=== PATIENT | male | born 1995 | race Caucasian/White ===

== ENCOUNTER 2019-01-28 09:18 | Emergency (ER) | payer BC ==
[2019-01-28] MEDS ORDERED: ONDANSETRON 4 MG (ODT) TAB ONE (10:22)
--- NOTE | 2019-01-28 10:39 | ER ---
Nurse's Notes [facility] Name: Dirk Moreno Age: 23 yrs Sex: Male : 1995 Arrival Date: 01/28/2019 Time: 09:23 Bed 15 Private MD: Diagnosis: Nausea and vomiting;Diarrhea, unspecified Presentation: 01/28 09:32 Presenting complaint: Patient states: Started running fever 99.7 yesterday. Denies rb1 pain. Transition of care: patient was not received from another setting of care. Onset of symptoms was January 27, 2019. Risk Assessment: Do you want to hurt yourself or someone else? Patient reports no desire to harm self or others. Care prior to arrival: None. :32 Method Of Arrival: Ambulatory rb1 :32 Acuity: MACARIO 3 rb1 :32 Initial Sepsis Screen: Does the patient meet any 2 criteria? No. Patient's initial rb1 sepsis screen is negative. Does the patient have a suspected source of infection? No. Patient's initial sepsis screen is negative. Triage Assessment: 09:32 General: Appears in no apparent distress. comfortable, Behavior is calm, cooperative. rb1 General: Reports fever for 1-2 days. Pain: Denies pain. Neuro: Level of Consciousness is awake, alert, obeys commands, Oriented to person, place, time, situation. Cardiovascular: Capillary refill < 3 seconds is brisk in bilateral fingers. Respiratory: Airway is patent Respiratory effort is even, unlabored, Respiratory pattern is regular, symmetrical. GI: Reports diarrhea, nausea, vomiting. : No signs and/or symptoms were reported regarding the genitourinary system. Derm: Skin is pink, warm \T\ dry. Historical: - Allergies: :32 Augmentin; rb1 09:32 Ceclor; rb1 09:32 Iodine; rb1 09:32 SHELLFISH; rb1 - Home Meds: :32 None [Active]; rb1 - PMHx: :32 None; rb1 - PSHx: :32 right thumb; rb1 - Immunization history:: Adult Immunizations up to date. - Social history:: Smoking status: Patient/guardian denies using tobacco. - Ebola Screening: : Patient negative for fever greater than or equal to 101.5 degrees Fahrenheit, and additional compatible Ebola Virus Disease symptoms. Screenin:32 Abuse screen: Denies threats or abuse. Nutritional screening: No deficits noted. rb1 Tuberculosis screening: No symptoms or risk factors identified. Fall Risk None identified. Assessment: 09:32 General: See triage assessment. rb1 10:30 Reassessment: Patient appears in no apparent distress at this time. Patient and/or rb1 family updated on plan of care and expected duration. Pain level reassessed. Patient is alert, oriented x 3, equal unlabored respirations, skin warm/dry/pink. Patient states symptoms have improved. Vital Signs: 09:32 BP 124 / 82; Pulse 105; Resp 17; Temp 99.7(O); Pulse Ox 96% on R/A; Weight 95.25 kg rb1 (R); Height 5 ft. 10 in. (177.80 cm) (R); Pain 0/10; 10:09 BP 118 / 73 Supine; Pulse 99; Resp 18; Pulse Ox 99% on R/A; rb1 10:11 BP 129 / 93 Sitting; Pulse 108; Resp 19; Pulse Ox 98% on R/A; rb1 10:13 BP 127 / 76 Standing; Pulse 103; Resp 19; Pulse Ox 97% on R/A; rb1 10:45 BP 124 / 87; Pulse 107; Resp 17; Temp 99(O); Pulse Ox 97% on R/A; Pain 0/10; rb1 09:32 Body Mass Index 30.13 (95.25 kg, 177.80 cm) rb1 ED Course: 09:23 Patient arrived in ED. ds1 09:31 Brittany Clark, SOFI is Primary Nurse. rb1 09:32 Rick Berger PA is PHCP. cp 09:32 Rick Miguel MD is Attending Physician. cp 09:32 Arm band placed on right wrist. rb1 09:32 Patient has correct armband on for positive identification. Bed in low position. Call rb1 light in reach. Side rails up X 1. Pulse ox on. NIBP on. 09:42 Triage completed. rb1 10:55 No provider procedures requiring assistance completed. Patient did not have IV access rb1 during this emergency room visit. Administered Medications: 10:07 Drug: Zofran 4 mg Route: PO; rb1 10:30 Follow up: Response: No adverse reaction; Nausea is decreased rb1 Outcome: 10:39 Discharge ordered by . cp 10:55 Discharged to home ambulatory. rb1 10:55 Condition: stable 10:55 Discharge instructions given to patient, Instructed on discharge instructions, follow up and referral plans. medication usage, Demonstrated understanding of instructions, follow-up care, medications, Prescriptions given X 1. 10:59 Patient left the ED. hb Signatures: Tosha Bowles ds1 Rick Berger PA PA cp Barber, Rebecca, RN RN rb1 Margarita De Los Santos RN RN hb
--- NOTE | 2019-01-28 10:40 | EDPHYS ---
Physician Documentation [facility] Name: Dirk Moreno Age: 23 yrs Sex: Male : 1995 Arrival Date: 01/28/2019 Time: 09:23 Bed 15 Private MD: ED Physician Rick Miguel HPI: 01/28 09:55 This 23 yrs old Male presents to ER via Ambulatory with complaints of cp Vomiting, Diarrhea, Fever. 09:55 The patient presents to the emergency department with nausea, that is moderate, cp vomiting, that is intermittent, 5 times today, diarrhea, that is continuous. 09:55 Onset: The symptoms/episode began/occurred last night. Possible causes: sick contacts, cp by co-worker(s). Associated signs and symptoms: Pertinent negatives: abdominal pain, constipation, dysuria, GI bleeding. Severity of symptoms: in the emergency department the symptoms are unchanged despite home interventions. Historical: - Allergies: 09:32 Augmentin; rb1 09:32 Ceclor; rb1 09:32 Iodine; rb1 09:32 SHELLFISH; rb1 - Home Meds: 09:32 None [Active]; rb1 - PMHx: 09:32 None; rb1 - PSHx: 09:32 right thumb; rb1 - Immunization history:: Adult Immunizations up to date. - Social history:: Smoking status: Patient/guardian denies using tobacco. - Ebola Screening: : Patient negative for fever greater than or equal to 101.5 degrees Fahrenheit, and additional compatible Ebola Virus Disease symptoms. ROS: 10:00 Constitutional: Negative for body aches, chills, fever, poor PO intake. cp 10:00 Eyes: Negative for injury, pain, redness, and discharge. cp 10:00 ENT: Negative for ear pain, sore throat, difficulty swallowing, difficulty handling secretions. 10:00 Cardiovascular: Negative for chest pain. 10:00 Respiratory: Negative for cough, shortness of breath, wheezing. 10:00 Abdomen/GI: Positive for nausea and vomiting, diarrhea, Negative for abdominal pain, constipation, hematemesis, black/tarry stool, rectal bleeding. 10:00 Back: Negative for radiated pain. 10:00 : Negative for urinary symptoms. 10:00 Skin: Negative for rash. 10:00 Neuro: Negative for dizziness, headache, weakness. 10:00 All other systems are negative. Exam: 10:05 Constitutional: The patient appears in no acute distress, alert, awake, non-toxic, well cp developed, well nourished. 10:05 Head/Face: Normocephalic, atraumatic. cp 10:05 Eyes: Periorbital structures: appear normal, Conjunctiva: normal, no exudate, no injection, Sclera: no appreciated abnormality, Lids and lashes: appear normal, bilaterally. 10:05 ENT: External ear(s): are unremarkable, Nose: is normal, Mouth: is normal, Posterior pharynx: is normal, airway is patent, no erythema, no exudate. 10:05 Chest/axilla: Inspection: normal. 10:05 Cardiovascular: Rate: tachycardic, Rhythm: regular. 10:05 Respiratory: the patient does not display signs of respiratory distress, Respirations: normal, no use of accessory muscles, no retractions, no splinting, no tachypnea. 10:05 Abdomen/GI: Inspection: abdomen appears normal, Bowel sounds: active, all quadrants, Palpation: abdomen is soft and non-tender, in all quadrants, voluntary guarding, is not appreciated, involuntary guarding, is not appreciated. 10:05 Back: pain, is absent, ROM is normal. 10:05 Neuro: Orientation: to person, place \T\ time. Mentation: is normal, Cerebellar function: cp is grossly normal, Motor: moves all fours, strength is normal. Vital Signs: 09:32 BP 124 / 82; Pulse 105; Resp 17; Temp 99.7(O); Pulse Ox 96% on R/A; Weight 95.25 kg rb1 (R); Height 5 ft. 10 in. (177.80 cm) (R); Pain 0/10; 10:09 BP 118 / 73 Supine; Pulse 99; Resp 18; Pulse Ox 99% on R/A; rb1 10:11 BP 129 / 93 Sitting; Pulse 108; Resp 19; Pulse Ox 98% on R/A; rb1 10:13 BP 127 / 76 Standing; Pulse 103; Resp 19; Pulse Ox 97% on R/A; rb1 10:45 BP 124 / 87; Pulse 107; Resp 17; Temp 99(O); Pulse Ox 97% on R/A; Pain 0/10; rb1 09:32 Body Mass Index 30.13 (95.25 kg, 177.80 cm) rb1 MDM: 09:35 Patient medically screened. [facility] 10:00 Differential diagnosis: gastritis, cholecystitis, pancreatitis, diverticulitis, viral cp gastroenteritis, gastroenteritis. 10:38 Data reviewed: vital signs, nurses notes, and as a result, I will discharge patient. cp 10:38 Counseling: I had a detailed discussion with the patient and/or guardian regarding: the cp historical points, exam findings, and any diagnostic results supporting the discharge/admit diagnosis, to return to the emergency department if symptoms worsen or persist or if there are any questions or concerns that arise at home. Response to treatment: the patient's symptoms have markedly improved after treatment, VSS. Nausea improved. No vomiting observed while in ED. Will discharge to home for continued monitoring. 01/28 09:49 Order name: Orthostatics; Complete Time: 10:12 cp Administered Medications: 10:07 Drug: Zofran 4 mg Route: PO; rb1 10:30 Follow up: Response: No adverse reaction; Nausea is decreased rb1 Disposition: 11:17 Co-signature as Attending Physician, Rick Miguel MD I agree with the assessment and [facility] plan of care. Disposition: 01/28/19 10:39 Discharged to Home. Impression: Nausea and vomiting, Diarrhea, unspecified. - Condition is Stable. - Discharge Instructions: Diarrhea, Adult, Nausea and Vomiting, Adult. - Prescriptions for Zofran 4 mg Oral Tablet - take 1 tablet by ORAL route every 12 hours As needed; 20 tablet. - Medication Reconciliation Form, Thank You Letter, Antibiotic Education, Prescription Opioid Use form. - Follow up: Private Physician; When: 1 - 2 days; Reason: Worsening of condition. - Problem is new. - Symptoms have improved. Signatures: Rick Miguel MD MD cha Page, Corey, PA PA cp Brittany Clark, RN RN rb1 Margarita De Los Santos, SOFI RN hb Corrections: (The following items were deleted from the chart) 10:59 10:39 01/28/2019 10:39 Discharged to Home. Impression: Nausea and vomiting; Diarrhea, hb unspecified. Condition is Stable. Forms are Medication Reconciliation Form, Thank You Letter, Antibiotic Education, Prescription Opioid Use. Follow up: Private Physician; When: 1 - 2 days; Reason: Worsening of condition. Problem is new. Symptoms have improved. cp
== END 2019-01-28 10:59 | disposition home or self-care (01) ==
LOC: ER 09:18
DX: R11.2 Nausea with vomiting, unspecified (principal); R19.7 Diarrhea, unspecified; Z88.8 Allergy status to other drugs, medicaments and biological substances; Z88.1 Allergy status to other antibiotic agents; Z91.013 Allergy to seafood
CPT/HCPCS: 99283